=== PATIENT | female | born 1980 | race Caucasian/White ===

== ENCOUNTER 2016-07-29 11:02 | Emergency (ER) | payer SELFPAY ==
[~2016-07-29] VITALS: Ht 167.6 cm; Wt 72.6 kg
[~2016-07-29 11:02] MED LIST: ACET-93 PO; Multivitamins/Minerals Therap PO; NITR100C10 PO; NITR100C3 PO; ONDA-42 PO; ONDA8TAB9 PO
--- OUTSIDE RECORDS SUMMARY | 2016-07-29 11:07 | XMS REPORT | Continuity of Care Document ---
Author Author [facility] Organization [facility] Address Unknown Phone Unavailable Care Team Providers Care Bureau Director Name Role Phone HAMILTON GIL - [facility] PCP Insurance Providers Payer Name Policy Number Subscriber Name Relationship Reed [employer] [id number] Ebonie Medina 19 Self / Same As Patient Advance Directives Directive Response Recorded Date/Time Advance Directives No 01/04/14 4:24pm Health Care Power of Bank Sales And Service Manager No 01/04/14 4:24pm Resuscitation Status Full Code 01/04/14 4:24pm Problems No known problems or medical conditions. Medications Medication Dose Route Sig Days/Qty Instructions Order Date Discontinued Date Status Nitrofurantoin/Nitrofuran Mac 100 Mg PO TWICE A DAY 12 Qty You have recieved one day's worth in the hospital of this medication. 01/06/14 Active [Multivitamins/Minerals Therap] 1 Ea PO DAILY@0700 30 Qty 01/06/14 Active Ondansetron Hcl 4 Mg PO EVERY 6 HOURS PRN 14 Qty 01/06/14 Active Social History Social History Problem Response Recorded Date/Time Alcohol Use Regular Use 01/04/2014 5:53pm Recreational Drug Use Y meth and crack history 01/04/2014 5:53pm Recent Foreign Travel No 01/04/2014 5:53pm Recent Infectious Disease Exposure No 01/04/2014 5:53pm Hospitalization with Isolation Denies 01/06/2014 3:13pm Sexually Transmitted Disease No 01/04/2014 5:53pm HIV/AIDS No 01/04/2014 5:53pm Smoking Status Current Everyday Smoker 01/04/2014 4:25pm Do you dip or chew tobacco? No 01/04/2014 4:25pm Query Response Start Date Stop Date Smoking Status Current Everyday Smoker Hospital Discharge Instructions Patient Instructions Physician Instructions New, Converted or Re-Newed RX: RX on Chart Patient Instructions Discharge Medications: Zofran ODT 4mg tab, 1PO Q6H PRN Nausea Disp: #14 with No Refills Macrobid Capsule 100mg 1 PO BID #12 (will complete a 7 day total course) No Refill Multivitamin 1 PO Daily #30 with 1 Refill Goal/Follow Up Appt: Follow up with Heather Enciso in 1 month, we recommend you get a comlete well woman exam with Heather. Please go directly to [facility] Patient Instructions: You were diagnosed with a urinary tract infection for which you are taking macrobid. You also had trichomonas which was treated with a one time dose of Flagyl 2,000mg 01-05-14. Your partner must be treated also or else that infeciton will return. You may not drink any alcohol with this medication. Discharge Diet: Regular Diet Activity as Tolerated: Yes Plan of Care Discharge Date 01/06/14 2:40pm Disposition 30 STILL A PATIENT Instructions/Education Provided Trichomoniasis (DC) Urinary Tract Infection in Women (DC) Abuse of Alcohol (GEN) Forms Provided Follow-Up Appts. Prescriptions See Medications Section Functional Status Query Response Date Recorded Patient Orientation Person Place Time Situation January 06, 2014 3:13pm Comprehension Ability Understands Concepts January 05, 2014 8:57pm Allergies, Adverse Reactions, Alerts Allergen Type Severity Reaction Status Last Updated No Known Drug Allergies Active 01/04/14 Immunizations Name Given Type Hepatitis A No Historical Hepatitis B No Historical Tetanus Booster (TDap) Less than 5yrs Historical pneumococcal polysaccharide PPV23 01/05/14 Administered Vital Signs Acute Vital Signs Vital Response Date/Time Temperature (Fahrenheit) 95.8 degrees F (97.6 - 99.5) Temperature (Calculated Celsius) 35.21321 degrees C (36.4 - 37.5) Temperature Source Temporal Pulse Rate (adult) 79 bpm (60 - 90) Respiratory Rate 19 bpm (12 - 24) O2 Sat by Pulse Oximetry 99 % (88 - 100) Blood Pressure 117/82 mm Hg Pain Pain Intensity 0 Height (Feet) 5 feet Height (Inches) 7.00 inches Height (Calculated Centimeters) 170.534145 cm Weight (Pounds) 146 pounds Weight (Ounces) 6.0 oz Weight (Calculated Grams) 23044.584 gm Weight (Calculated Kilograms) 66.808772 kilograms Calculated BMI 22.86 Results No known relevant diagnostic tests, laboratory data and/or discharge summary. Procedures No known history of procedures. Encounters Encounter Location Date/Time Discharged Inpatient Via [facility] 01/04/14 3:55pm
[2016-07-29 11:42] LABS: BASOPHILS # (AUTO) 0.1 10^3/uL (0.0-0.1); BASOPHILS % (AUTO) 1 % (0-10); EOSINOPHILS # (AUTO) 0.2 10^3/uL (0.0-0.3); EOSINOPHILS % (AUTO) 2 % (0-10); LYMPHOCYTES % (AUTO) 19 % (12-44); MEAN CORPUSCULAR HEMOGLOBIN 33 PG (25-34); MEAN CORPUSCULAR HGB CONC 35 G/DL (32-36); MEAN CORPUSCULAR VOLUME 94 FL (80-99); MEAN PLATELET VOLUME 10.4 FL (7.4-10.4); MONOCYTES # (AUTO) 0.7 X 10^3 (0.0-1.0); MONOCYTES % (AUTO) 7 % (0-12); NEUTROPHILS # (AUTO) 7.4 X 10^3 (1.8-7.8); NEUTROPHILS % (AUTO) 71 % (42-75); PLATELET COUNT 154 10^3/uL (130-400); RED BLOOD COUNT 4.64 10^6/uL (4.35-5.85); RED CELL DISTRIBUTION WIDTH 14.3 % (10.0-14.5); WHITE BLOOD COUNT 10.4 10^3/uL (4.3-11.0)
[2016-07-29 11:58] LABS: ALANINE AMINOTRANSFERASE 27 U/L (0-55); ALBUMIN 4.3 G/DL (3.2-4.5); ALCOHOL 264 MG/DL (<10); ANION GAP 14 MMOL/L (5-14); ASPARTATE AMINO TRANSFERASE 31 U/L (5-34); BILIRUBIN,TOTAL 0.4 MG/DL (0.1-1.0); BLOOD UREA NITROGEN 11 MG/DL (7-18); BUN/CREATININE RATIO 16; CALCIUM 8.7 MG/DL (8.5-10.1); CARBON DIOXIDE 21 MMOL/L (21-32); CHLORIDE 109 MMOL/L (98-107); CREATININE SERUM 0.69 MG/DL (0.60-1.30); GFR ESTIMATED > 60; GLUCOSE 88 MG/DL (70-105); SALICYLATE < 5.0 MG/DL (5.0-20.0); SODIUM 144 MMOL/L (135-145); TOTAL PROTEIN 7.2 G/DL (6.4-8.2)
[2016-07-29 12:01] LABS: ACETAMINOPHEN < 10 UG/ML (10-30)
--- NOTE | 2016-07-29 12:03 | ED Psychosocial ---
General Chief Complaint: Substance Abuse Stated Complaint: ETOH Nursing Triage Note: Patient advises she has a hx. of alcohol abuse and is being admitted for detox to a facility in [place] August 06. Pt. advises she has been drinking vodka and whiskey heavily since secondary to a relationship issue. Pt. advises that her brought his girlfriend to [facility] home and she found them shortly after. Source: patient, family (mother and daughter.) Exam Limitations: no limitations History of Present Illness Time seen by provider: 12:03 Initial Comments 36-year-old female patient presents to the emergency department with reports of drinking a half of a fifth of vodka prior to EMS contacted. Mother states she was concerned that patient I drink too much and was worried that she might stop breathing. Patient reports she is going to a facility in [place] for alcohol rehabilitation. Patient states she has been through rehabilitation to previous times. Recently found and his girlfriend and their home which set her into increased drinking. Patient reports drinking at least a fifth of vodka or whiskey per day. Denies suicidal or homicidal ideation. Mother states "I may have freaked out, but I was worried about her." Timing/Duration: this morning Severity: severe Associated Symptoms: anxiety, impaired concentration, ingestion, insomnia Allergies and Home Medications Allergies Coded Allergies: No Known Drug Allergies (Unverified , 01/04/14) Home Medications Cephalexin 500 Mg Capsule #21 500 MG PO TID Prescribed by: JASIEL JOEL on 07/29/16 1241 Nitrofurantoin Monohyd/M-Cryst 100 Mg Capsule #6 100 MG PO BID Prescribed by: POPPY RAMOS on 03/05/16 1120 Ondansetron 8 Mg Tab.rapdis #20 8 MG PO Q8H PRN PRN NAUSEA Prescribed by: POPPY RAMOS on 03/05/16 1108 Constitutional: No diaphoresis, No dizziness, No fever, No weakness EENTM: no symptoms reported Respiratory: No cough, No short of breath Cardiovascular: No chest pain, No palpitations, No syncope Gastrointestinal: No abdominal pain, No constipation, No diarrhea, No hematemesis, No jaundice, No melena, nausea vomiting Genitourinary: no symptoms reported Musculoskeletal: no symptoms reported Skin: no symptoms reported Psychiatric/Neurological: See HPIDenies Headache, Denies Numbness, Denies Paresthesia, Denies Seizure, Denies Tingling, Denies Tremors, Denies Weakness All Other Systems Reviewed Negative Unless Noted: Yes (Negative excepted noted.) Past Udskilq-Yvuqhe-Zpbsrx Hx Patient Social History Alcohol Use: Regular Use Recreational Drug Use: Yes Drug of Choice: meth Smoking Status: Current Everyday Smoker Type Used: Cigarettes Recent Foreign Travel: No Contact w/Someone Who Travel: No Recent Infectious Disease Expo: No Recent Hopitalizations: No Immunizations Up To Date Tetanus Booster (TDap): Less than 5yrs Seasonal Allergies Seasonal Allergies: No Surgeries HX Surgeries: Yes (RIGHT HAND, LEFT WRIST FX/ORIF'S) Surgeries: Orthopedic, Tubal Ligation Respiratory Hx Respiratory Disorders: No Cardiovascular Hx Cardiac Disorders: No Neurological Hx Neurological Disorders: No Reproductive System Hx Reproductive Disorders: Yes (IRREGULAR PERIODS) Sexually Transmitted Disease: No HIV/AIDS: No Female Reproductive Disorders: Menstrual Problems IT INSTRUCTOR History: Tubal Ligation Genitourinary Hx Genitourinary Disorders: Yes Genitourinary Disorders: UTI-Chronic Gastrointestinal Hx Gastrointestinal Disorders: Yes Gastrointestinal Disorders: Gastroesophageal Reflux, Chronic Diarrhea Musculoskeletal Hx Musculoskeletal Disorders: Yes (metal plate right hand and left wrist) Musculoskeletal Disorders: Arthritis, Fractures Endocrine Hx Endocrine Disorders: No HEENT HX ENT Disorders: No Loss of Vision: Denies Hearing Impairment: Hard of Hearing Cancer Hx Cancer: No Psychosocial Hx Psychiatric Problems: No Behavioral Health Disorders: Anxiety, Bipolar, Violent Behavior, Depression Integumentary HX Skin/Integumentary Disorder: No Blood Transfusions Hx Blood Disorders: No Reviewed Nursing Assessment Reviewed/Agree w Nursing PMH: Yes Family Medical History Significant Family History: No Pertinent Family Hx, Other Conditions/Hx Family Medial History: Alcoholism 19 FATHER (sober since ) Arthritis 19 FATHER Asthma son daughter Cardiovascular disease Cataracts Completed stroke Dementia Diabetes mellitus Drug abuse 19 MOTHER G8 SISTER Glaucoma 19 FATHER Hypercholesterolemia 19 FATHER Hypertension 19 FATHER Respiratory disorder Thyroid disease 19 MOTHER Visual disorder son No Family History of: AIDS Abdominal aortic aneurysm Severiano's disease Alzheimer's disease Aphasia Cancer of mouth Colon cancer Congenital disease Congenital heart disease Coronary thrombosis Cystic fibrosis Deafness or hearing loss Dysphasia Fibrocystic disease of breast Gastroenteritis Headache disorder Infertility Kidney disease Myocardial infarction Neoplasm Not obtainable due to adoption Osteoporosis Parkinson's disease Prostate cancer Psychosocial problem Seizure disorder Severe allergy Tuberculosis Physical Exam Vital Signs Vital Sign - Last 12Hours 07/29/16 11:28 Temp 98.6 Pulse 73 Resp 14 B/P 128/90 Pulse Ox 98 O2 Delivery Room Air Capillary Refill : Less Than 3 Seconds General Appearance: WD/WN no apparent distress HEENT: PERRL/EOMI pharynx normal Neck: supple normal inspection Respiratory: lungs clear normal breath sounds no respiratory distress Cardiovascular: normal peripheral pulses regular rate, rhythm no edema no murmur Gastrointestinal: normal bowel sounds non tender soft no organomegalyNo distended Extremities: no pedal edema normal capillary refill Neurologic/Psychiatric: flight/transport nurse II-XII nml as tested no motor/sensory deficits alert oriented x 3 depressed affect Appearance/Memory: appropriate appearance appropriate insight neat no memory impairment Behavior/Eye Contact: cooperative good eye contact normal speech Thoughts/Hallucinations: normal thought pattern no apparent hallucination Skin: normal color warm/dryNo jaundice Progress/Results/Core Measures Results/Orders Lab Results Laboratory Tests Test 07/29/16 11:21 07/29/16 11:22 07/29/16 12:12 Range/Units Glucometer 90 70-110 MG/DL Acetaminophen Level < 10 L 10-30 UG/ML Alanine Aminotransferase (ALT/SGPT) 27 0-55 U/L Albumin 4.3 3.2-4.5 G/DL Alkaline Phosphatase 56 40-136 U/L Anion Gap 14 5-14 MMOL/L Aspartate Amino Transf (AST/SGOT) 31 5-34 U/L BUN/Creatinine Ratio 16 Basophils # (Auto) 0.1 0.0-0.1 10^3/uL Basophils (%) (Auto) 1 0-10 % Blood Urea Nitrogen 11 7-18 MG/DL Calcium Level 8.7 8.5-10.1 MG/DL Carbon Dioxide Level 21 21-32 MMOL/L Chloride Level 109 H 98-107 MMOL/L Creatinine 0.69 0.60-1.30 MG/DL Eosinophils # (Auto) 0.2 0.0-0.3 10^3/uL Eosinophils (%) (Auto) 2 0-10 % Estimat Glomerular Filtration Rate > 60 Glucose Level 88 70-105 MG/DL Hematocrit 44 35-52 % Hemoglobin 15.2 11.5-16.0 G/DL Lymphocytes # (Auto) 2.0 1.0-4.0 X 10^3 Lymphocytes (%) (Auto) 19 12-44 % Mean Corpuscular Hemoglobin 33 25-34 PG Mean Corpuscular Hemoglobin Concent 35 32-36 G/DL Mean Corpuscular Volume 94 80-99 FL Mean Platelet Volume 10.4 7.4-10.4 FL Monocytes # (Auto) 0.7 0.0-1.0 X 10^3 Monocytes (%) (Auto) 7 0-12 % Neutrophils # (Auto) 7.4 1.8-7.8 X 10^3 Neutrophils (%) (Auto) 71 42-75 % Platelet Count 154 130-400 10^3/uL Potassium Level 4.0 3.6-5.0 MMOL/L Red Blood Count 4.64 4.35-5.85 10^6/uL Red Cell Distribution Width 14.3 10.0-14.5 % Salicylates Level < 5.0 L 5.0-20.0 MG/DL Serum Alcohol 264 H <10 MG/DL Sodium Level 144 135-145 MMOL/L TSH Candia Testing 1.23 0.35-4.94 UIU/ML Total Bilirubin 0.4 0.1-1.0 MG/DL Total Protein 7.2 6.4-8.2 G/DL White Blood Count 10.4 4.3-11.0 10^3/uL Ur Tricyclic Antidepressants Screen NEGATIVE NEGATIVE Urine Amphetamines Screen POSITIVE H NEGATIVE Urine Bacteria LARGE H /HPF Urine Barbiturates Screen NEGATIVE NEGATIVE Urine Benzodiazepines Screen NEGATIVE NEGATIVE Urine Bilirubin NEGATIVE NEGATIVE Urine Cannabinoids Screen NEGATIVE NEGATIVE Urine Casts NONE /LPF Urine Clarity CLEAR Urine Cocaine Screen NEGATIVE NEGATIVE Urine Color YELLOW Urine Crystals NONE /LPF Urine Culture Indicated YES Urine Glucose (UA) NEGATIVE NEGATIVE Urine Ketones NEGATIVE NEGATIVE Urine Leukocyte Esterase 1+ H NEGATIVE Urine Methadone Screen NEGATIVE NEGATIVE Urine Methamphetamines Screen POSITIVE H NEGATIVE Urine Mucus NEGATIVE /LPF Urine Nitrite POSITIVE H NEGATIVE Urine Opiates Screen NEGATIVE NEGATIVE Urine Oxycodone Screen NEGATIVE NEGATIVE Urine Phencyclidine Screen NEGATIVE NEGATIVE Urine Test NEGATIVE NEGATIVE Urine Propoxyphene Screen NEGATIVE NEGATIVE Urine Protein NEGATIVE NEGATIVE Urine RBC NONE /HPF Urine RBC (Auto) 1+ H NEGATIVE Urine Specific [place] 1.010 L 1.016-1.022 Urine Squamous Epithelial Cells 5-10 /HPF Urine Urobilinogen NORMAL NORMAL MG/DL Urine WBC 0-2 /HPF Urine pH 6 5-9 Micro Results Microbiology 07/29/16 Urine Culture - Preliminary, Resulted My Orders Orders-JASIEL JOEL PA Ua Culture If Indicated (07/29/16 11:37) Cbc With Automated Diff (07/29/16 11:37) Comprehensive Metabolic Panel (07/29/16 11:37) Alcohol (07/29/16 11:37) Drug Screen Stat (Urine) (07/29/16 11:37) Acetaminophen (07/29/16 11:37) Salicylate (07/29/16 11:37) Ekg Tracing (07/29/16 11:37) Hcg,Qualitative Urine (07/29/16 11:37) Thyroid Analyzer (07/29/16 11:37) Saline Lock/Iv-Start (07/29/16 11:37) Urine Culture (07/29/16 12:12) Ns Iv 1000 Ml (Sodium Chloride 0.9%) (07/29/16 13:12) Medications Given in ED Vital Signs/I&O Blood Pressure Mean: 103 ECG Initial ECG Impression Date: Jul 29, 2016 Initial ECG Impression Time: 12:34 Initial ECG Rate: 90 Initial ECG Rhythm: Normal Sinus Initial ECG Comparisson: No Previous ECG Available Comment Sinus rhythm. No STEMI or arrhythmia noted. ECG reviewed and discussed with Holger Nino MD. Departure Communication Progress Notes , Laboratory findings discussed with the patient and case packer and sealer who is now present in the room. Patient does admit to using occasional methamphetamines. Patient reports feeling better with IV fluids. No further vomiting in the emergency department noted. Patient has been awake and alert throughout the entire exam. Patient is oriented 3. No acute distress. Plan for discharge home. internal control manager reports overall stay with the patient and monitor her throughout the day. I discussed with the patient that she does need to proceed with admission on August 06 to the alcohol rehabilitation program as previously scheduled. All return precautions were discussed with the patient. Patient voices understanding and agrees with the treatment plan. Impression Impression: Primary Impression: Alcohol intoxication Qualified Code: F10.120 - Alcohol abuse with intoxication, uncomplicated Additional Impressions: Alcohol dependence Qualified Code: F10.29 - Alcohol dependence with unspecified alcohol-induced disorder Methamphetamine use Urinary tract infection Qualified Code: N30.00 - Acute cystitis without hematuria Disposition: HOME, SELF-CARE Condition: Improved Departure-Patient Inst. Decision time for Depature: 12:39 Referrals: [facility] (PCP/Family) Primary Care Physician Patient Instructions: ALCOHOL AND SUBSTANCE ABUSE, Alcohol Abuse and Alcoholism (DC), Urinary Tract Infection, Adult (DC) Add. Discharge Instructions: All discharge instructions reviewed with patient and/or family. Voiced understanding. Medications as instructed. Tylenol extra strength over-the- counter as directed for pain or headache. Ibuprofen 800 mg by mouth every 8 hours as needed for pain or headache. Avoid use of methamphetamines. Proceed with alcohol rehabilitation admission on August 06 as previously scheduled. Follow-up with your family doctor this week for a recheck. Call for appointment time. Return to the emergency department for worsened symptoms or any other concerns. Scripts Cephalexin 500 Mg [id number] Mg PO TID #21 CAP Ref 0 Prov:JASIEL JOEL 07/29/16 JASIEL JOEL Jul 29, 2016 12:03 understanding. Medications as instructed. Tylenol extra strength over-the- counter as directed for pain or headache. Ibuprofen 800 mg by mouth every 8 hours as needed for pain or headache. Avoid use of methamphetamines. Proceed with alcohol rehabilitation admission on August 06 as previously scheduled. Follow-up with your family doctor this week for a recheck. Call for appointment time. Return to the emergency department for worsened symptoms or any other concerns. Scripts Cephalexin 500 Mg [id number] Mg PO TID #21 CAP Ref 0 Prov:JASIEL JOEL 07/29/16 JASIEL JOEL Jul 29, 2016 12:03
[2016-07-29 12:17] LABS: BILIRUBIN,URINE NEGATIVE (NEGATIVE); KETONES,URINE NEGATIVE (NEGATIVE); LEUKOCYTE ESTERASE ,URINE 1+ (NEGATIVE); NITRITE,URINE POSITIVE (NEGATIVE); PH,URINE 6 (5-9); PROTEIN,URINE NEGATIVE (NEGATIVE); UROBILINOGEN,URINE NORMAL (NORMAL)
[2016-07-29 12:25] LABS: WBC,URINE 0-2 /HPF
[2016-07-29] MEDS ORDERED: CEPH500C PO (12:41)
[2016-07-29] MEDS ORDERED: NS IV 1000 ML 1,000 ML IV ONE (13:12)
[2016-07-29 14:27] VITALS: BP 123/90
== END 2016-07-29 14:27 | disposition home or self-care (01) ==
LOC: EDUNIT# 11:02 → ER 11:03
DX: F10.229 Alcohol dependence with intoxication, unspecified (principal); N39.0 Urinary tract infection, site not specified; F15.10 Other stimulant abuse, uncomplicated; F17.210 Nicotine dependence, cigarettes, uncomplicated; Y90.8 Blood alcohol level of 240 mg/100 ml or more
CPT/HCPCS: 36415; 80053; 80306; 80320; 80329; 81000; 82962; 84443; 84703; 85025; 87088; 93005; 96360

== ENCOUNTER 2018-12-07 20:32 | Emergency (ER) | payer MEDICAID ==
[~2018-12-07] VITALS: Ht 165.1 cm; Wt 59.0 kg
[~2018-12-07 20:32] MED LIST changes: +CEPH500C PO
[2018-12-07] MEDS ORDERED: NS IV 1000 ML 1,000 ML IV ONE (21:21)
[2018-12-07 21:34] LABS: BASOPHILS % (AUTO) 0 % (0-10); EOSINOPHILS # (AUTO) 0.2 10^3/uL (0.0-0.3); EOSINOPHILS % (AUTO) 2 % (0-10); HEMATOCRIT 45 % (35-52); HEMOGLOBIN 15.5 G/DL (11.5-16.0); LYMPHOCYTES # (AUTO) 3.1 X 10^3 (1.0-4.0); LYMPHOCYTES % (AUTO) 28 % (12-44); MEAN CORPUSCULAR HEMOGLOBIN 33 PG (25-34); MEAN CORPUSCULAR HGB CONC 35 G/DL (32-36); MEAN CORPUSCULAR VOLUME 95 FL (80-99); MEAN PLATELET VOLUME 9.6 FL (7.4-10.4); MONOCYTES # (AUTO) 1.3 X 10^3 (0.0-1.0); MONOCYTES % (AUTO) 12 % (0-12); NEUTROPHILS # (AUTO) 6.6 X 10^3 (1.8-7.8); NEUTROPHILS % (AUTO) 59 % (42-75); PLATELET COUNT 206 10^3/uL (130-400); RED CELL DISTRIBUTION WIDTH 14.2 % (10.0-14.5); WHITE BLOOD COUNT 11.3 10^3/uL (4.3-11.0)
[2018-12-07] MEDS ORDERED: LORazepam INJ 2 MG/ML (ATIVAN) VIAL IVP ONE (21:45)
[2018-12-07 21:55] LABS: ALANINE AMINOTRANSFERASE 83 U/L (0-55); ALBUMIN 4.5 GM/DL (3.2-4.5); ALKALINE PHOSPHATASE 67 U/L (40-136); BILIRUBIN,TOTAL 0.3 MG/DL (0.1-1.0); BUN/CREATININE RATIO 16; CALCIUM 9.9 MG/DL (8.5-10.1); CARBON DIOXIDE 19 MMOL/L (21-32); CHLORIDE 106 MMOL/L (98-107); CREATININE SERUM 0.83 MG/DL (0.60-1.30); GFR ESTIMATED > 60; GLUCOSE 104 MG/DL (70-105); POTASSIUM 3.8 MMOL/L (3.6-5.0); SALICYLATE < 5.0 MG/DL (5.0-20.0); SODIUM 143 MMOL/L (135-145)
[2018-12-07 21:55] LABS: BILIRUBIN,URINE NEGATIVE (NEGATIVE); CLARITY,URINE SLIGHTLY CLOUDY; COLOR,URINE YELLOW; GLUCOSE, URINE (UA) NEGATIVE (NEGATIVE); KETONES,URINE NEGATIVE (NEGATIVE); LEUKOCYTE ESTERASE ,URINE 2+ (NEGATIVE); NITRITE,URINE POSITIVE (NEGATIVE); PH,URINE 5 (5-9); PROTEIN,URINE 3+ (NEGATIVE); UROBILINOGEN,URINE NORMAL (NORMAL)
[2018-12-07 21:59] LABS: ACETAMINOPHEN < 10 UG/ML (10-30)
[2018-12-07 22:01] LABS: BACTERIA,URINE LARGE /HPF; RBC,URINE RARE /HPF
[2018-12-07 22:02] LABS: HCG,QUALITATIVE URINE NEGATIVE (NEGATIVE)
--- NOTE | 2018-12-07 22:02 | ED Psychosocial ---
General Chief Complaint: Substance Abuse Stated Complaint: ETOH ABUSE Nursing Triage Note: pt states she is a daily drinker. pt states she drinks 1/5th of vodka daily and states she thinks her "living is quiting" pt states she gets drunk quicker than she normally does. pt denies past medical history. pt denies withdraw seizures. pt states smoking pot. Source: patient Exam Limitations: no limitations History of Present Illness Date Seen by Provider: Dec 07, 2018 Time Seen by Provider: 20:33 Initial Comments This 38-year-old woman presents to the emergency room accompanied by a friend and admits that she is high on methamphetamines and intoxicated on alcohol. She cannot clearly state why she is here only that she does not want to and she is concerned about her liver. She is belligerent and not following ins tructions. Her friend reports that she is a daily drinker and that her substance abuse is "very bad". Allergies and Home Medications Allergies Coded Allergies: No Known Drug Allergies (Unverified , 01/04/14) Home Medications Cephalexin 500 Mg Capsule, 500 MG PO TID Prescribed by: JASIEL JOEL on 07/29/16 1241 Nitrofurantoin Monohyd/M-Cryst 100 Mg Capsule, 100 MG PO BID Prescribed by: POPPY RAMOS on 03/05/16 1120 Ondansetron 8 Mg Tab.rapdis, 8 MG PO Q8H PRN for NAUSEA Prescribed by: POPPY RAMOS on 03/05/16 1108 Patient Home Medication List Home Medication List Reviewed: Yes Review of Systems Constitutional: see HPI EENTM: no symptoms reported Respiratory: no symptoms reported Cardiovascular: no symptoms reported Gastrointestinal: no symptoms reported Genitourinary: no symptoms reported : No Musculoskeletal: no symptoms reported Skin: no symptoms reported Psychiatric/Neurological: See HPI Past Rvehiqk-Flwdlp-Pblqjw Hx Past Med/Social Hx: Reviewed and Corrections made Patient Social History Alcohol Beverage of Choice: Whiskey, Vodka Recreational Drug Use: Yes Drug of Choice: meth Type Used: Cigarettes Recent Foreign Travel: No Contact w/Someone Who Travel: No Recent Infectious Disease Expo: No Recent Hopitalizations: No Immunizations Up To Date Tetanus Booster (TDap): Less than 5yrs Seasonal Allergies Seasonal Allergies: No Past Medical History Surgeries: Yes Orthopedic, Tubal Ligation Currently Using CPAP: No Currently Using BIPAP: No Neurological: No : No Reproductive Disorders: Yes (IRREGULAR PERIODS) Female Reproductive Disorders: Menstrual Problems UTILITY ASSEMBLER History: Tubal Ligation Sexually Transmitted Disease: No HIV/AIDS: No Genitourinary: Yes UTI-Chronic Gastrointestinal: Yes Gastroesophageal Reflux, Chronic Diarrhea Musculoskeletal: Yes Arthritis, Fractures Endocrine: No HEENT: No Loss of Vision: Denies Hearing Impairment: Hard of Hearing Psychosocial: Yes Anxiety, Bipolar, Violent Behavior, Depression Family Medical History Alcoholism 19 FATHER (sober since 93) Arthritis 19 FATHER Asthma son daughter Cardiovascular disease Cataracts Completed stroke Dementia Diabetes mellitus Drug abuse 19 MOTHER G8 SISTER Glaucoma 19 FATHER Hypercholesterolemia 19 FATHER Hypertension 19 FATHER Respiratory disorder Thyroid disease 19 MOTHER Visual disorder son No Family History of: AIDS Abdominal aortic aneurysm Wells's disease Alzheimer's disease Aphasia Cancer of mouth Colon cancer Congenital disease Congenital heart disease Coronary thrombosis Cystic fibrosis Deafness or hearing loss Dysphasia Fibrocystic disease of breast Gastroenteritis Headache disorder Infertility Kidney disease Myocardial infarction Neoplasm Not obtainable due to adoption Osteoporosis Parkinson's disease Prostate cancer Psychosocial problem Seizure disorder Severe allergy Tuberculosis No Pertinent Family Hx, Other Conditions/Hx Physical Exam Vital Signs - First Documented 12/07/18 12/08/18 20:40 01:27 Temp 97.6 Pulse 109 Resp 18 B/P (MAP) 145/108 (120) Pulse Ox 96 O2 Delivery Room Air Capillary Refill : Less Than 3 Seconds Height, Weight, BMI Height: 5'5.00" Weight: 130lbs. 4.8oz. [id number]; 24.6 BMI Method:Stated General Appearance: WD/WN, other (agitated, belligerent, disheveled) HEENT: PERRL/EOMI, normal ENT inspection, pharynx normal Neck: normal inspection Respiratory: lungs clear, normal breath sounds, no respiratory distress, no accessory muscle use Cardiovascular: regular rate, rhythm, no edema, no murmur Gastrointestinal: normal bowel sounds, soft Extremities: normal inspection, no pedal edema Neurologic/Psychiatric: bilingual legal assistant II-XII nml as tested, no motor/sensory deficits, alert, oriented x 3, other (agitated and belligerent) Appearance/Memory: disheveled Behavior/Eye Contact: good eye contact, normal speech, belligerent, compulsive, uncooperative Thoughts/Hallucinations: other (poor insight) Skin: normal color, warm/dry Progress/Results/Core Measures Results/Orders Lab Results Laboratory Tests Test 12/07/18 21:21 12/07/18 21:49 Range/Units White Blood Count 11.3 H 4.3-11.0 10^3/uL Red Blood Count 4.74 4.35-5.85 10^6/uL Hemoglobin 15.5 11.5-16.0 G/DL Hematocrit 45 35-52 % Mean Corpuscular Volume 95 80-99 FL Mean Corpuscular Hemoglobin 33 25-34 PG Mean Corpuscular Hemoglobin Concent 35 32-36 G/DL Red Cell Distribution Width 14.2 10.0-14.5 % Platelet Count 206 130-400 10^3/uL Mean Platelet Volume 9.6 7.4-10.4 FL Neutrophils (%) (Auto) 59 42-75 % Lymphocytes (%) (Auto) 28 12-44 % Monocytes (%) (Auto) 12 0-12 % Eosinophils (%) (Auto) 2 0-10 % Basophils (%) (Auto) 0 0-10 % Neutrophils # (Auto) 6.6 1.8-7.8 X 10^3 Lymphocytes # (Auto) 3.1 1.0-4.0 X 10^3 Monocytes # (Auto) 1.3 H 0.0-1.0 X 10^3 Eosinophils # (Auto) 0.2 0.0-0.3 10^3/uL Basophils # (Auto) 0.0 0.0-0.1 10^3/uL Prothrombin Time 12.9 12.2-14.7 SEC INR Comment 0.9 0.8-1.4 Sodium Level 143 135-145 MMOL/L Potassium Level 3.8 3.6-5.0 MMOL/L Chloride Level 106 98-107 MMOL/L Carbon Dioxide Level 19 L 21-32 MMOL/L Anion Gap 18 H 5-14 MMOL/L Blood Urea Nitrogen 13 7-18 MG/DL Creatinine 0.83 0.60-1.30 MG/DL Estimat Glomerular Filtration Rate > 60 BUN/Creatinine Ratio 16 Glucose Level 104 70-105 MG/DL Calcium Level 9.9 8.5-10.1 MG/DL Corrected Calcium 9.5 8.5-10.1 MG/DL Total Bilirubin 0.3 0.1-1.0 MG/DL Aspartate Amino Transf (AST/SGOT) 70 H 5-34 U/L Alanine Aminotransferase (ALT/SGPT) 83 H 0-55 U/L Alkaline Phosphatase 67 40-136 U/L Total Protein 8.0 6.4-8.2 GM/DL Albumin 4.5 3.2-4.5 GM/DL TSH [place] Testing 3.04 0.35-4.94 UIU/ML Salicylates Level < 5.0 L 5.0-20.0 MG/DL Acetaminophen Level < 10 L 10-30 UG/ML Serum Alcohol 444 *H <10 MG/DL Urine Color YELLOW Urine Clarity SLIGHTLY CLOUDY Urine pH 5 5-9 Urine Specific [place] 1.020 1.016-1.022 Urine Protein 3+ H NEGATIVE Urine Glucose (UA) NEGATIVE NEGATIVE Urine Ketones NEGATIVE NEGATIVE Urine Nitrite POSITIVE H NEGATIVE Urine Bilirubin NEGATIVE NEGATIVE Urine Urobilinogen NORMAL NORMAL MG/DL Urine Leukocyte Esterase 2+ H NEGATIVE Urine RBC (Auto) 2+ H NEGATIVE Urine RBC RARE /HPF Urine WBC 10-25 H /HPF Urine Squamous Epithelial Cells 10-25 H /HPF Urine Crystals NONE /LPF Urine Bacteria LARGE H /HPF Urine Casts NONE /LPF Urine Mucus NEGATIVE /LPF Urine Culture Indicated YES Urine Test NEGATIVE NEGATIVE Urine Opiates Screen NEGATIVE NEGATIVE Urine Oxycodone Screen NEGATIVE NEGATIVE Urine Methadone Screen NEGATIVE NEGATIVE Urine Propoxyphene Screen NEGATIVE NEGATIVE Urine Barbiturates Screen NEGATIVE NEGATIVE Ur Tricyclic Antidepressants Screen NEGATIVE NEGATIVE Urine Phencyclidine Screen NEGATIVE NEGATIVE Urine Amphetamines Screen POSITIVE H NEGATIVE Urine Methamphetamines Screen POSITIVE H NEGATIVE Urine Benzodiazepines Screen NEGATIVE NEGATIVE Urine Cocaine Screen NEGATIVE NEGATIVE Urine Cannabinoids Screen POSITIVE H NEGATIVE My Orders Orders - MICKEY CHAN MD Ed Iv/Invasive Line Start (12/07/18 21:21) Ns Iv 1000 Ml (Sodium Chloride 0.9%) (12/07/18 21:21) Hcg,Qualitative Urine (12/07/18 21:21) Lorazepam Injection (Ativan Injection) (12/07/18 21:45) Ceftriaxone For Iv Use (Rocephin For I (12/07/18 22:15) Lactated Ringers (Lr 1000 Ml Iv Solution (12/07/18 22:10) Protime With Inr (12/07/18 22:30) Medications Given in ED Current Medications Medications Dose Ordered Sig/Jon Route Start Time Stop Time Status Last Admin Dose Admin Ceftriaxone Sodium 1000 mg/ Sterile Water 10 ml @ 200 mls/hr ONCE ONCE IV 12/07/18 22:15 12/07/18 22:17 DC 12/07/18 22:19 200 MLS/HR Lactated Ringer's 1,000 ml @ 0 mls/hr Q0M ONCE IV 12/07/18 22:10 12/07/18 22:12 DC 12/07/18 22:18 1,000 MLS/HR Lorazepam 0.5 mg ONCE ONCE IVP 12/07/18 21:45 12/07/18 21:46 DC 12/07/18 21:55 0.5 MG Sodium Chloride 1,000 ml @ 0 mls/hr Q0M ONCE IV 12/07/18 21:21 12/07/18 21:22 DC 12/07/18 21:30 1,000 MLS/HR Vital Signs/I&O 12/07/18 12/08/18 20:40 01:27 Temp 97.6 97.6 Pulse 109 96 Resp 18 18 B/P (MAP) 145/108 (120) 145/108 (120) Pulse Ox 96 O2 Delivery Room Air Room Air Blood Pressure Mean: 120 Progress Progress Note #1: Time: 22:30 Progress Note Patient was seen and examined. IV was eventually established and a liter of IV fluid was infused. Patient's behavior has been very difficult to manage due to her intoxication and polysubstance abuse. Alcohol level was 444. She was given Ativan 0.5 mg IV to help control her behavior so she could be treated. She is n ow asleep and on continuous monitoring. She is maintaining her airway. Progress Note #2: Time: 01:20 Progress Note Patient was allowed to rest in the emergency room. She eventually fell sleep for a couple of hours. She awoke more cooperative, sober, and able to safely walk on her own. She was discharged with instructions to closely follow up with the [facility] substance abuse clinic. Departure Impression Primary Impression: Alcohol intoxication Qualified Codes: F10.920 - Alcohol use, unspecified with intoxication, uncomplicated Additional Impressions: Methamphetamine use Urinary tract infection Qualified Codes: N39.0 - Urinary tract infection, site not specified Disposition: 01 HOME, SELF-CARE Condition: Improved Departure-Patient Inst. Decision time for Depature: 01:20 Referrals: [facility] [place] Primary Care Physician Patient Instructions: ALCOHOL AND SUBSTANCE ABUSE, Urinary Tract Infections in Adults Add. Discharge Instructions: Please significantly reduce your alcohol consumption. Drink plenty of clear liquids. I recommend that you follow up with the [facility] this morning and asked to enroll in the substance abuse program. Return to care if you have worsening symptoms. All discharge instructions reviewed with patient and/or family. Voiced understanding. Copy Copies To 1: MARCIN POZO JOSHUA T MD Dec 07, 2018 22:02
[2018-12-07 22:06] LABS: AMPHETAMINE SCREEN, URINE POSITIVE (NEGATIVE); BARBITURATE SCREEN URINE NEGATIVE (NEGATIVE); BENZODIAZEPINES SCREEN URINE NEGATIVE (NEGATIVE); CANNABINOID SCREEN, URINE POSITIVE (NEGATIVE); COCAINE SCREEN URINE NEGATIVE (NEGATIVE); METHADONE STAT NEGATIVE (NEGATIVE); METHAMPHETAMINE SCREEN URINE S POSITIVE (NEGATIVE); OPIATE SCREEN URINE NEGATIVE (NEGATIVE); OXYCODONE STAT NEGATIVE (NEGATIVE); PROPOXYPHENE STAT NEGATIVE (NEGATIVE); TRICYCLIC ANTIDEPRESSANTS SCRE NEGATIVE (NEGATIVE)
[2018-12-07] MEDS ORDERED: LACTATED RINGERS 1,000 ML IV ONE (22:10)
[2018-12-07] MEDS ORDERED: cefTRIAXone FOR IV USE 1,000 MG in WATER (STERILE) FOR INJECTION 10 ML IV ONE (22:15)
[2018-12-07 22:38] LABS: INR 0.9 (0.8-1.4); PROTHROMBIN TIME PATIENT 12.9 SEC (12.2-14.7)
[2018-12-08 01:27] VITALS: BP 145/108
== END 2018-12-08 01:29 | disposition home or self-care (01) ==
LOC: EDUNIT# 20:32 → ER 20:33
DX: F10.129 Alcohol abuse with intoxication, unspecified (principal); N39.0 Urinary tract infection, site not specified; F15.10 Other stimulant abuse, uncomplicated; F31.9 Bipolar disorder, unspecified; F41.9 Anxiety disorder, unspecified; K21.9 Gastro-esophageal reflux disease without esophagitis; R45.6 Violent behavior; Z98.51 Tubal ligation status; Z82.49 Family history of ischemic heart disease and other diseases of the circulatory system
CPT/HCPCS: 36415; 80053; 80306; 80320; 80329; 81000; 84443; 84703; 85025; 85610; 87077; 87088; 87186; 96374; 96375